=== PATIENT | female | born 1945 | race Caucasian/White ===

== ENCOUNTER → 2023-10-28 09:48 | Outpatient (REF) | payer OTHER, SELFPAY | LOC: HWWDC 09:48 | PROVIDERS: ATTENDING PHYSICIAN Internal Medicine | DX: Z12.31 Encounter for screening mammogram for malignant neoplasm of breast (principal) | CPT/HCPCS: 77063; 77067 ==

== ENCOUNTER 2024-11-07 05:35 | Observation (INO) | payer OTHER, SELFPAY ==
[2024-11-07] VITALS (9 sets, daily range): BP systolic 138–184; BP diastolic 84–105; PULSE 79; O2SAT 95; BMI 29.9
[2024-11-07 01:40] LABS: Hematocrit 42.8 % (37.0-47.0); Hemoglobin 14.4 g/dL (12.0-16.0); Mean Corp Hgb Conc. 33.6 g/dL (33.0-37.0); Mean Corpuscular Volume 92.4 fL (81.0-99.0); Nucleated Red Blood Cells % 0 %; Platelet Count 266 10^3/uL (130-400); Red Cell Dist. Width 12.7 % (11.5-14.5)
[2024-11-07 01:57] LABS: ALT (SGPT) 31 U/L (0-35); AST (SGOT) 41 U/L (14-36); Albumin 4.4 g/dl (3.5-5.0); Alkaline Phosphatase 85 U/L (38-126); Blood Urea Nitrogen 18 mg/dl (7-17); Calcium 9.6 mg/dl (8.4-10.2); Carbon Dioxide 25 mmol/L (22-30); Chloride 107 mmol/L (98-107); Estimated Creatinine Clearance 72 ml/min; Glucose 139 mg/dl (70-99); Potassium 4.2 mmol/L (3.5-5.1); Sodium 139 mmol/L (135-145); Total Protein 7.1 g/dl (6.3-8.2); eGFR > 60.00
--- NOTE | 2024-11-07 02:49 | ED.GENMED ---
History of Present Illness
General
Chief Complaint: Numbness
Source: patient and ambulance crew
Exam Limitations: none
Time Seen by Provider: 11/07/24 02:32
Nursing documentation reviewed up to this point in time: agreed with except (Patient reports right sided paresthesias from previous CVA 5 years ago resolved.)
History of Present Illness
History of Present Illness:
This is a 79-year-old woman with history of CAD, hypertension, hyperlipidemia, [id number] diabetes, ASCVD with history of CVA 5 years ago as well as history of vascular dementia.
She has been residing in independent living apartment at [facility] for the past 2 years. At baseline ambulates with a rollator when out of her apartment. Does not require ambulatory assistance while in her apartment.
She went to bed feeling well and at her baseline around 8:30 PM. She awoke sometime around midnight to get up and go to the bathroom and it was at this time where she noticed some numbness of her right hand, right forearm as well as numbness of her
right foot and right lower leg. She had no difficulty ambulating, no weakness, no dizziness nor lightheadedness.
She is concerned that right sided numbness is very similar to previous symptoms she suffered with a stroke 5 years ago.
She states she awoke lying on her back. She does not recall sleeping on her right side. But she does note that right arm and right leg numbness feels like her hand and foot 'are asleep.'
She denies chest pain nor cough no shortness of breath.
Numbness of primarily her hand and her foot persist. She denies pain. No neck or back pain. No recent falls.
If applicable-neuro sx onset
Onset of symptoms known: No
Time pt last seen normal is known: Yes
Date last time pt seen normal: 11/06/24
Time last time pt seen normal: 20:30
Past History
Past History
ED Past Medical History: CAD, Cancer (Melanoma), CVA, HTN, Hypercholesterolemia, NIDDM and Other (Vascular dementia)
ED Past Surgical History: Cardiac (Pacemaker), Gynecological (Hysterectomy) and Other (Melanoma excision x 2)
Social History
Tobacco: Non-smoker
Alcohol: None
Drug: None
Personal:
Living: assisted living (Resides at [facility], independent living)
Family History
Family History: Other (Noncontributory)
Phy Exam
Physical Exam
Physical Exam:
GENERAL: 79-year-old woman appears her stated age, bright and alert, pleasant, appears in no acute distress. Awake alert and oriented x 3. Easily communicative.
EYE: pupils equal and reactive. Extraocular muscles intact. No visual field deficit. Anicteric
NECK: Supple, nontender, no meningismus, no significant adenopathy.
ENT: posterior pharynx is clear, oral mucosa is moist. No rhinorrhea. No facial droop.
CARDIAC: Regular rate and rhythm. no murmur.
LUNGS: Clear breath sounds bilaterally, no acute respiratory distress, no wheezes/rales/rhonchi
ABDOMEN: Soft, nondistended, without focal tenderness, normoactive BS.
NEUROLOGICAL: Alert and oriented x3, cranial nerves II through XII grossly intact. Motor strength is 5/5 bilaterally. Gross sensation is intact. Questionable reliability of sharp versus dull of all 4 extremities. Negative drift. Very minimal
dysmetria of digits of right hand. There is no aphasia nor dysarthria.
SKIN: Warm and dry, normal color, skin intact. No rash.
MUSCULOSKELETAL: No C/C/E. peripheral pulses are full and equal b/l. No palpable tenderness.
PSYCH: Normal and appropriate interaction.
Scores
NIH Stroke Score
Level of Consciousness: 0 - Alert
LOC Questions: 0-Answers both correctly
LOC Commands: 0-Performs both correctly
Best Horizontal Gaze: 0-Normal
Visual Crawford: 0=Normal, no visual loss
Facial Palsy: 0=Normal, symmetrical
Motor - Right Arm: 0=No drift 10 seconds
Motor - Left Arm: 0=No drift 10 seconds
Motor - Right Le-No drift 5 seconds
Motor - Left Le-No drift 5 seconds
Limb Ataxia: 1-Present in one limb
Sensation: 0-Normal
Best Language: 0-No aphasia
Dysarthria: 0-Normal
Extinction and Inattention: 0-No abnormality
NIH Total Score:: 1
Course
Orders/Labs/Results
Orders:
Orders
11/07/24 01:22
CMP [Comprehensive Metabolic Panel] Urgent
Complete Blood Count/With Diff Urgent
11/07/24 02:36
Electrocardiogram (*1) Urgent
Reason for Study: Fatigue / Weakness
CT Head W/o Iv Contrast Urgent
Comment:
Reason For Exam: paresthesia right side
EKG- Treatment ONCE
11/07/24 02:40
Troponin I Urgent
Abnormal Lab Results
11/07/24
01:22
MCH 31.1 H pg
(27.0-31.0)
Abs Immat Gran (auto) 0.1 H 10^3/uL
(0-0.05)
Absolute Monos (auto) 1.0 H 10^3/uL
(0.1-0.6)
Immature Gran % 0.6 H %
(0-0.5)
Monocytes % 9.9 H %
(1.7-9.3)
BUN 18 H mg/dl
(7-17)
Glucose 139 H mg/dl
(70-99)
AST 41 H U/L
(14-36)
11/07/24 01:22
11/07/24 01:22
Vital Signs
Initial and Last Documented VS:
Initial Vital Signs
Temp Pulse Resp BP Pulse Ox
98.3 F 78 21 184/100 94
11/07/24 01:06 11/07/24 01:06 11/07/24 01:06 11/07/24 01:06 11/07/24 01:06
Last Documented Vital Signs
Temp Pulse Resp BP Pulse Ox
98.3 F 77 18 184/100 93
11/07/24 01:06 11/07/24 01:15 11/07/24 01:15 11/07/24 01:06 11/07/24 03:01
MDM/Problems Addressed
Differential Diagnosis Includes:
The Differential Diagnosis includes, in no particular order and is not limited to:
1. Transient Ischemic Attack
2. Cerebrovascular Accident
3. Peripheral Neuropathy
4. Multiple Sclerosis
5. Brachial Plexus Injury
6. Carpal Tunnel Syndrome
7. Cervical Radiculopathy
8. Hypoglycemia
9. Cobalamin Deficiency
10. Anxiety or Panic Attack
MDM/Problems Addressed:
Right sided paresthesia
At this point, unclear as to onset of symptoms as patient awoke with the symptoms. Last reported normal upon going to bed at 8:30 PM last night. And initial NIH stroke scale of 1. Therefore patient not a candidate for TNK.
Will check CT of the head.
Patient has multiple risk factors for CAD and with complaints of right arm paresthesia must consider CAD thus we will check EKG as well as troponin.
Chronic conditions affecting care: DM, HTN, CAD, Neurological disorder (Prior history of CVA) and Cancer (History of melanoma excision x 2)
*Radiology
Radiology exam reviewed: radiology read reviewed
*Pulse Oximetry
SaO2: 93
Oxygen Mode of Delivery: Room air
Patient hypoxic: no
*EKG
Interpreted by ED Provider?: Yes
Interpretation: normal
Comparison EKG: no comparison EKG present
Rate: normal
Rhythm: sinus and PVC's (1 unifocal PVC; 1 atrial paced complex)
Dunlap: normal axis
Interval: normal interval
QRS Pattern: normal QRS
Ischemia: no ischemia
*Company Doctor Interpretation
Rate: normal
Interpretation: normal
Rhythm: sinus
*Critical Care Note
Total Time (30-74mins, 75-104mins- exclusive of procedures): Not Applicable
Update Note
Update Note:
05:14
CT of the head shows no acute findings. There is note of left SEARCH PLANNER territory encephalomalacia as well as moderate periventricular hypodensities consistent with small vessel ischemic disease.
Patient continues with right arm and right lower extremity paresthesia, very minimal dysmetria of right hand digits which again she notes is new, persistent.
She continues to have no focal weakness.
EKG shows normal sinus rhythm with 1 unifocal PVC. No acute ST-T wave abnormalities.
Troponin is pending but she continues to deny chest pain.
Due to concern for acute stroke, will admit to hospitalist service for further evaluation.
ED Attending Note
-
Portions of this chart may have been created with voice recognition software.� Occasional wrong word or��sound alike� substitutions may have occurred due to the inherent limitations of voice recognition software.
Discharge Plan
Departure
Patient Disposition: Admit
Date of Disposition: 11/07/24
Time of Disposition: 05:14
Admit to: Telemetry
Admit to doctor: Randall
Presentation/result/management discussed w/ accepting MD/DO: Hospitalist
Condition: Fair
Discharge Problem:
Paresthesia of right arm and leg
Prescriptions:
No Action
donepezil 5 mg Tablet
5 mg PO HS
clopidogrel 75 mg Tablet
75 mg PO DAILY
losartan 100 mg Tablet
100 mg PO DAILY
escitalopram oxalate 10 mg Tablet
10 mg PO DAILY
pitavastatin calcium [Livalo] 4 mg Tablet
4 mg PO DAILY
Repatha Syringe 140 mg/mL Syringe
140 mg SC Q2W
metformin 750 mg Tablet
750 mg PO BID
Referrals:
Khusid,Chelsea, DO [Family Provider, Internal Medicine]
Interventions
Interventions:
*Risk Screen - Suicide Last Done: 11/07/24 01:06
*General Assessment Last Done: 11/07/24 01:06
*Neglect/Abuse Screening Last Done: 11/07/24 01:06
*ED- Fall Risk Assessment Last Done: 11/07/24 01:06
*ED COVID-19 Vaccine History Last Done: 11/07/24 01:06
ED- Neurological Assessment Last Done: 11/07/24 01:06
Discharge Date and Time
Print Language: VIETNAMESE
[2024-11-07 03:38] LABS: Troponin I < 0.012 ng/ml
--- NOTE | 2024-11-07 05:29 | HPS.HSE ---
Family Physician
-
Family Physician: Chelsea Royal
Chief Complaint
-
R sided neuralgia
History of Present Illness
Patient is a 79y F with PMH significant for hypertension, DM-II and prior CVA who presents to ED complaining of burning pain in the RUE and RLE. Patient states that she had a prior CVA about 5 years ago affecting her R side. She has some
residual weakness / ataxia - mostly involving the R hand. Patient presents today complaining of burning pain in the RUE from the shoulder to the fingertips and in the RLE from the knee to the toes. It is somewhat difficult to determine when these
symptoms began.
Patient initially informed ED staff that she woke in the middle of the night and noted this pain. She called 911 and was brought to the ED for evaluation.
Patient tells me that the pain started around 10 AM on Wednesday - shortly after breakfast. The pain then persisted for most of the day before the patient called 911.
At later times, patient states that the pain has been there for 'a week or two' and also that 'I live with this'.
She denies any new weakness in the arm or leg.
No headache. No vision changes. No fevers / chills, chest pain, cough, etc.
Patient denies any recent medication changes.
Medical History
Past Medical History
Past Medical History: Reports Other
Additional Past Medical History:
ASCVD
CVA 2020
Hypertension
DM-II
Peripheral Neuropathy
Vascular Dementia
Melanoma
Past Surgical History: Reports Other
Additional Past Surgical History:
Melanoma Excisions
PPM Placement
Hysterectomy
Social History
Tobacco: Non-smoker
Alcohol: None
Drug: None
Living: Assisted Living ([facility])
Family History
Family History: Not pertinent
Allergies / Home Medications
Allergies reflects when Allergies were last updated in [facility].
Home Medications with original date entered in [facility]
Allergy/Medication List:
Allergies
Allergy/AdvReac Type Severity Reaction Status Date / Time
latex Allergy Unknown Rash Verified 11/07/24 01:32
Home Medications
clopidogrel 75 mg tablet 75 mg PO DAILY 11/07/24
donepezil 5 mg tablet 5 mg PO HS 11/07/24
escitalopram oxalate 10 mg tablet 10 mg PO DAILY 11/07/24
evolocumab 140 mg/mL subcutaneous syringe (Repatha Syringe) 140 mg SC Q2W 11/07/24
losartan 100 mg tablet 100 mg PO DAILY 11/07/24
metformin 750 mg tablet 750 mg PO BID 11/07/24
pitavastatin calcium 4 mg tablet (Livalo) 4 mg PO DAILY 11/07/24
Review of Systems
-
History Source: Patient
A 12 point ROS was completed and negative except as noted: Yes
Constitutional: Reports Fatigue; Denies Fever or Chills
Respiratory: Denies Cough or Trouble Breathing
Cardiac: Denies Chest Pain or Palpitations
Abdomen/GI: Denies Abdominal Pain, Nausea, Vomiting or Diarrhea
: Denies Dysuria, Frequency or Flank Pain
Musculoskeletal: Denies Joint Pain or Edema
Neurological: Reports Weakness, Numbness and Other (burning pain); Denies Dizzy or Headache
Psych: Denies Depression or Anxiety
Physical Exam
Vital Signs
Vital Signs
Temp Pulse Resp BP Pulse Ox
98.3 F 77 18 184/100 93
11/07/24 01:06 11/07/24 01:15 11/07/24 01:15 11/07/24 01:06 11/07/24 03:01
Physical Exam
General: Other (79y F in no acute distress.)
HEENT: Moist mucous membranes and PERRLA
Respiratory: Clear; No Wheezes, Rales or Rhonchi
Cardiac: S1/S2 and Regular Rhythm; No Murmur
GI: Soft, Non Tender, Non Distended and Normal Bowel Sounds
Musculoskeletal: No Clubbing, No Cyanosis and No Edema
Neuro: Awake, Alert and Other (RUE weakness, decreased manual dexterity - reportedly chronic. No appreciable sensory deficits.)
Laboratory Results
-
11/07/24 01:22
11/07/24 01:22
Laboratory Results
Total Bilirubin 0.5 mg/dl (0.2-1.3) 11/07/24 01:22
AST 41 U/L (14-36) H 11/07/24:22
ALT 31 U/L (0-35) 11/07/24:
Alkaline Phosphatase 85 U/L (38-126) 11/07/24 01:22
Troponin I < 0.012 ng/ml 11/07/24 02:40
Impression/Plan
-
A/P: Patient is a 79y F with PMH significant for hypertension, DM and prior CVA who presents to ED complaining of right sided neuralgia.
Right-Sided Neuralgia
- Observe overnight for further evaluation and treatment.
- It is unclear when symptoms began - or if they are new at all really.
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 No new / acute findings.
- Follow serial neuro exams for any changes.
- Continue Plavix and add ASA for now.
- MRI in AM to assess for any acute insult.
- ? new CVA, chronic sequelae of prior CVA or recrudescence of old stroke.
- Trial of gabapentin for neuropathic pain.
- PT / OT evaluations.
- Check lipids, follow BP, etc.
ASCVD
- DAPT for now as noted above (chronically on Plavix).
- Continue statin. Note that patient also on Repatha as an outpatient.
Benign Hypertension
- BP initially elevated in the ED and is improving without specific intervention.
- Continue usual BP med regimen for now and adjust as needed.
DM-II
- Stable. Hold metformin acutely.
- Follow glucose and cover with SSI as needed.
- Update A1C.
Senile Dementia
- History somewhat difficult given underlying dementia and varying time frames presented for symptom onset.
- Continue donepezil.
- Monitor for any agitation / delirium during acute stay.
DVT Prophylaxis: SCDs
Code Status: Full
[2024-11-07 08:04] LABS: Glucose - Point of Care 134 mg/dl (70-99)
--- NOTE | 2024-11-07 08:41 | W.PN.HOSP.TC ---
Today's Communication/Plan
-
MRI today
Continue blood pressure medications
Continue monitoring neurochecks
Assessment / Plan
Assessment / Plan
Assessment:
79-year-old female with past medical history of hypertension, DM2, prior CVA presented to the outside ED due to burning pain in the right upper extremity and right lower extremity. She has had CVA around 5 years ago which affected her right side
and has had residual weakness and ataxia, mostly involving the right hand. She says that her symptoms began last night when she started to notice some numbness and pain after which she called the ambulance to go to the hospital because she thought
she might be having a stroke. 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 Patient was continued on her Plavix and added aspirin. Due for MRI this morning
to assess for any acute insults. She was started on gabapentin for her neuropathic pain.
Plan:
#Right-Sided Neuralgia/neuropathic pain
- Patient admitted for observation
- Symptoms may have been chronic however might have worsened for acute reason
- CT head shows no acute findings, still awaiting final read
- Continue neurochecks every 4 hours
- Continue Plavix and add ASA for now.
- Brain MRI today, check for any acute findings
- Trial of gabapentin for neuropathic pain.
- Will await PT OT evaluations
- Will consult neuro for any further recommendations, input appreciated
#ASCVD
- Has been on Plavix, continue and added aspirin
- Continue statin. Patient also on Repatha as an outpatient
- Will recheck lipids in the morning
#Benign Hypertension
- Blood pressure still elevated, has not received her medication yet
- Continue to monitor blood pressure, will check blood pressure again when she has received her losartan for the day
# Type 2 diabetes, [id number]
- Holding metformin in the hospital setting
- Continuing insulin sliding scale as needed
- HbA1c in the morning
#Senile Dementia
- Difficult to get history as patient has continued to change her symptoms
- Continue home dose of donepezil.
- Continue to monitor for any worsening mental status
DVT Prophylaxis: SCDs
Full code
Anticipated Discharge: Within 24 hours
Subjective/Interval History
-
Date of Service: November 07, 2024
Patient seen this morning, he was not complaining of any pain. Said that she has some right sided upper and lower extremity numbness however has no motor weakness. Does not report any burning sensation at this time. Overall patient is feeling
well, reports no headaches, shortness of breath, chest pain.
Objective Data
-
Labs:
Laboratory Results
11/07/24
01:22
WBC 10.1
Hgb 14.4
Hct 42.8
Plt Count 266
Sodium 139
Potassium 4.2
Chloride 107
Carbon Dioxide 25
BUN 18 H
Creatinine 0.6
Glucose 139 H
Calcium 9.6
Total Bilirubin 0.5
AST 41 H
ALT 31
Alkaline Phosphatase 85
Vital Signs:
Vital Signs
Temp Pulse Resp BP Pulse Ox
98.2 F 77 16 163/90 93
11/07/24 08:26 11/07/24 06:00 11/07/24 06:00 11/07/24 04:00 11/07/24 03:15
Review of Systems
-
History Source: Patient
Constitutional: Reports No Symptoms
EENT: Reports No Symptoms Reported
Respiratory: Reports No Symptoms
Cardiac: Reports No Symptoms
Abdomen/GI: Reports No Symptoms
Genitourinary: Reports No Symptoms
Musculoskeletal: Reports Other (Right hand, right foot mild numbness); Denies Myalgias
Skin: Reports No Symptoms
Neuro: Denies Headache, Weakness, Tremors or Lightheadedness
Physical Exam
-
General: Well Developed, Well Nourished, No Apparent Distress, Comfortable and Conversant
HEENT: Normocephalic and Atraumatic
Respiratory: Clear to Auscultation and Non Labored Respirations
Cardiac: Regular Rhythm and S1/S2; Negative Murmur
GI: Soft, Nontender and Nondistended
Genito-urinary: No Costovertebral Tender
Musculoskeletal: No Clubbing, No Cyanosis and No Edema
Skin: Warm and Dry
Neuro: Awake, Alert, Oriented, AO x 3, No Motor Deficits and Other (Mild loss of pinprick sensation in right 2nd and 3rd toes, without any pain. Mild loss of pinprick sensation in right hand, without any pain); Negative Slurred Speech or Facial
Droop
Psych: Calm
Data Reviewed
-
CT Scan: Report Reviewed by me, Discussed with Physician, Discussed with Nurse and Discussed with Patient
Labs: Labs Reviewed by me, Discussed with Physician, Discussed with Nurse and Discussed with Patient
[2024-11-07] MEDS: NEURONTIN 100 MG PO ×3 (09:14→21:03)
[2024-11-07] MEDS: COZAAR 100 MG PO (09:14)
[2024-11-07] MEDS: PLAVIX 75 MG PO (09:14)
[2024-11-07] MEDS: LEXAPRO 10 MG PO (09:15)
[2024-11-07] MEDS: LOW STRENGTH ASPIRIN 81 MG PO (09:15)
--- NOTE | 2024-11-07 10:09 | CM ---
CM reviewed chart and met with pt bedside in ED. Pt lives [place] in [place] apartment at [facility].
Independent in ADLs, personal care and ambulation at baseline. Uses Rolling walker, no other DME.
MCCALL reviewed and signed, pt declined copy of form.
No hx VN or SNF.
PCP: Dr Chelsea Royal
Pharmacy: [facility]
Anticipate [facility], CM will continue to follow for any discharge planning needs.
[2024-11-07] MEDS: LIPITOR 20 MG PO (10:53)
--- NOTE | 2024-11-07 10:57 | CON.NEURO ---
Addendum entered and electronically signed by Holden Lai MD 11/07/24 17:06:
Studies reviewed.
I have personally examined the patient. I reviewed and agree with the COAL EQUIPMENT OPERATOR's Note.
My addenda:
Awake, alert, interactive. No acute distress.
Speech intact.
Follows 2-step requests w/ mild difficulty. No tremor.
Extra-ocular movements grossly intact.
Facial movements full and symmetric. Hearing intact to normal conversational volume.
Normal UE movements bilaterally.
Neck: full ROM.
Chest: no dyspnea
Heart: no JVD
Ext: (-) Clubbing, (-) Cyanosis, (-) Edema
IMPRESSIONS/RECOMMENDATIONS:
Abrupt onset of right-hemibody sensation change and right hemianopia in a patient with prior stroke
DDX acute left parieto-occipital stroke or thalamic ischemic stroke
add ASA to current Clopidogrel
double Atorvastatin dosing due to LDL > 70
check MRI of brain
goal of normotension after 24 hours of onset of symptoms, until then permissive HTN
D/W patient / family / nursing
All questions answered.
Will continue to follow patient.
Original Note:
Documented by User: Genoveva Stahl NP 11/07/24 14:42
Neuro Assessment/Plan
Assessment
Patient is a 79 year-old right-handed female with PMH significant for hypertension, DM-II, dementia and prior CVA who presents to [facility] on 11/07/2024 complaining of burning pain in the RUE and RLE.
Head CT: No acute intracranial abnormality noted. Old infarcts. Moderate periventricular small vessel ischemic disease. Mild atrophy.
CTA head/neck: No evidence for hemodynamically significant stenosis of the carotid bulbs or proximal internal carotid arteries bilaterally. No significant narrowing of the anterior circulation intracranial. Moderate narrowing of the V4 portion of
the right vertebral artery. Small caliber of the posterior cerebral arteries is mild luminal irregularity, in this patient with evidence for bilateral old occipital infarcts.
Labs: Cholesterol 230, LDL 116, Hgb A1C 7.1
Plan
Impression: unclear onset of RUE/RLE paresthesias as well as right hemianopsia, differential diagnosis includes acute ischemic stroke vs recrudesce of old stroke
-check MRI brain without contrast to evaluate for stroke
-BP goal is normotension.
-continue aspirin 81 mg in addition to clopidogrel 75 mg daily, check P2Y12 to ensure she is a responder
-goal is normoglycemia.
-goal LDL <70, current LDL 116 increase atorvastatin from 20 mg to 40 mg nightly
-PT/OT/ST evaluations
-continue neurochecks and NIHSS per unit guidelines
-stroke education material to be provided
All questions encouraged and answered, plan of care discussed with Dr. Lai and patient
Consultation
Order
Date of Consultation: 11/07/24
Requesting Provider: hospitalist
Reason for Consult: paresthesia of RUE/RLE
Subjective/Objective
Subjective Data
Date of Service: November 07, 2024
Patient is a 79 year-old right-handed female with PMH significant for hypertension, DM-II, dementia and prior CVA who presents to [facility] from [facility] on 11/07/2024 complaining of burning pain in the RUE and RLE. Patient states that she had a
prior CVA about 5 years ago affecting her R side. She has some residual weakness / ataxia - mostly involving the R hand. Patient presents today complaining of burning pain in the RUE from the shoulder to the fingertips and in the RLE from the knee
to the toes. It is somewhat difficult to determine when these symptoms began. Patient initially informed ED staff that she went to bed in her normal state of health around 8:30 pm and awoke in the middle of the night and noted this pain. She called
911 and was brought to the ED for evaluation and did not call her family because she did not want them to worry. Patient told the hospitalist that the pain started around 10 AM on Wednesday shortly after breakfast. The pain then persisted for most of
the day before the patient called 911. At later times, patient states that the pain has been there for 'a week or two' and also that 'I live with this'. She denies any new weakness in the arm or leg. Denies headache, vision changes, chewing or
swallowing issues. No fevers, chills, chest pain, SOB. Denies issues with bladder/bowel. Denies recent falls or LOC. Patient denies any recent medication changes. In the ED she underwent CT head which showed prior CVA/encephalomalacia in the left
POWER WASHER area however no acute or new findings were seen. Her initial BP was 184/100. Patient was continued on her Plavix and aspirin was added. She was started on gabapentin for her neuropathic pain. Not a TNK candidate due to unclear onset of symptoms.
Objective Data
Vital Signs
Temp Pulse Resp BP Pulse Ox
98.2 F 88 17 168/84 96
11/07/24 08:26 11/07/24 09:00 11/07/24 09:00 11/07/24 09:14 11/07/24 08:45
Lab Results
11/07/24 01:22
11/07/24 01:22
Sodium 139 mmol/L (135-145) 11/07/24 01:22
Potassium 4.2 mmol/L (3.5-5.1) 11/07/24 01:22
BUN 18 mg/dl (7-17) H 11/07/24 01:22
Glucose 139 mg/dl (70-99) H 11/07/24 01:22
Calcium 9.6 mg/dl (8.4-10.2) 11/07/24 01:22
Patient Allergies
latex Allergy (Unknown, Verified 11/07/24 01:32)
Rash
CVA Assessment
Onset of Stroke Symptoms
Onset of symptoms known: Yes
Date of onset of symptoms: 11/06/24
Time of onset of symptoms: 10:00
Time pt last seen normal is known: Yes
Date last time pt seen normal: 11/06/24
Time last time pt seen normal: 10:00
NIH Stroke Score
Level of Consciousness: 0 - Alert
LOC Questions: 0-Answers both correctly
LOC Commands: 0-Performs both correctly
Best Horizontal Gaze: 0-Normal
Visual Crawford: 0=Normal, no visual loss
Facial Palsy: 0=Normal, symmetrical
Motor - Right Arm: 0=No drift 10 seconds
Motor - Left Arm: 0=No drift 10 seconds
Motor - Right Le-No drift 5 seconds
Motor - Left Le-No drift 5 seconds
Limb Ataxia: 1-Present in one limb
Sensation: 0-Normal
Best Language: 0-No aphasia
Dysarthria: 0-Normal
Extinction and Inattention: 0-No abnormality
NIH Total Score:: 1
Tenecteplase Contraindications
Inclusion and Exclusion criteria reviewed: Yes
Reasons for NON-Tx with Thrombolytics ABSOLUTE Exclusions: Time-out of window
IAT Contraindications: >6 hrs from onset/last seen normal and NIHSS < 6
Physical Exam
-
General: No Apparent Distress, Comfortable and Appears Stated Age
HEENT: Normocephalic, Atraumatic and Anicteric
Neck: Full Range of Motion
Respiratory: No Dyspnea
Cardiac: No JVD
GI: Non-distended
Skin: Unremarkable
Extremities: No Clubbing, No Cyanosis and No Edema
Psych: Confused and Apparent Dementia
Extended Neurological Exam
Mood & Affect: Mood Unremarkable
Attention Span & Concentration: Awake, Alert, Interactive and No Difficulty with 2 Step Request
Speech: Quality Unremarkable, Quantity Unremarkable and Rate of Production Unremarkable
Cranial Nerve II: Left Eye: Other (right hemianopsia)
Cranial Nerve II: Right Eye: Other (right hemianopsia)
Cranial Nerves III, IV, : Extraocular Movement: Extraocular Movement Full in all Directions
Cranial Nerve VII: Facial Symmetry: Normal Facial Symmetry
Cranial Nerve VIII: Hearing: Unremarkable Hearing to Normal Conversational Volume
Cranial Nerves IX, X: Palate Movement: Palate Elevation Symmetric
Cranial Nerve XI: Shoulder Shrug: Unremarkable
Muscle Strength, Overall: Full Throughout
Pronator Drift: No Drift in Upper Extremities and No Drift in Lower Extremities
Coordination: Reaches for Objects without Difficulty and Other (RUE ataxia )
Data Reviewed
-
CT Head: Report Reviewed and Image Reviewed
Labs: Report Reviewed
Reviewed with: Physician, Nurse and Patient
Old Records: Summarized
Medications
-
Active Medications
Generic Name Dose Route Start Last Admin
Trade Name Freq PRN Reason Stop Dose Admin
Acetaminophen 650 mg 11/07/24 06:59
Acetaminophen 325 Mg Tablet PO 12/05/24 06:58
Q4HPRN PRN
Mild Pain / Temp > 101
Aspirin 81 mg 11/07/24 08:00 11/07/24 09:15
Aspirin 81 Mg Chewable Tablet PO 12/05/24 07:59 81 mg
DAILY MERON Administration
Atorvastatin Calcium 20 mg 11/07/24 10:00 11/07/24 10:53
Atorvastatin (Lipitor) 20 Mg Tablet PO 12/05/24 09:59 20 mg
DAILY MERON Administration
Clopidogrel Bisulfate 75 mg 11/07/24 08:00 11/07/24 09:14
Clopidogrel 75 Mg Tablet PO 12/05/24 07:59 75 mg
DAILY MERON Administration
Dextrose 12.5 grams 11/07/24 06:59
Dextrose 50% (0.5 Grams/Ml) 50 Ml Syringe IV 12/05/24 06:58
[id number] PRN
hypoglycemia
Protocol
Donepezil HCl 5 mg 11/07/24 22:00
Donepezil 5 Mg Tablet PO 12/05/24 21:59
HS MERON
Escitalopram Oxalate 10 mg 11/07/24 08:00 11/07/24 09:15
Escitalopram 10 Mg Tablet PO 12/05/24 07:59 10 mg
DAILY MERON Administration
Gabapentin 100 mg 11/07/24 08:00 11/07/24 09:14
Gabapentin 100 Mg Capsule PO 12/05/24 07:59 100 mg
TID MERON Administration
Glucagon 1 mg 11/07/24 06:59
Glucagon 1 Mg Vial IM 12/05/24 06:58
PRN PRN
hypoglycemia
Protocol
Insulin Aspart 0 units 11/07/24 07:30 11/07/24 08:04
Insulin Aspart Low Resistance 300 Units/3 Ml Pen.Injctr SC 12/05/24 07:29 Not Given
AC MERON
Protocol
Losartan Potassium 100 mg 11/07/24 08:00 11/07/24 09:14
Losartan 100 Mg Tablet PO 12/05/24 07:59 100 mg
DAILY MERON Administration
Sodium Chloride 0 flush 11/07/24 07:00
Sodium Chloride 0.9% (Flush) Syringe IV 12/05/24 06:59
PER PROTOCOL MERON
Home Medications
�Medication �Instructions �Recorded
clopidogrel 75 mg tablet 75 mg PO DAILY 11/07/24
donepezil 5 mg tablet 5 mg PO HS 11/07/24
escitalopram oxalate 10 mg tablet 10 mg PO DAILY 11/07/24
evolocumab 140 mg/mL subcutaneous 140 mg SC Q2W 11/07/24
syringe (Repatha Syringe)
losartan 100 mg tablet 100 mg PO DAILY 11/07/24
metformin 750 mg tablet 750 mg PO BID 11/07/24
pitavastatin calcium 4 mg tablet 4 mg PO DAILY 11/07/24
(Livalo)
Past History
Past History
ED Past Medical History: CAD, Cancer (Melanoma), CVA, HTN, Hypercholesterolemia, NIDDM and Other (Vascular dementia)
ED Past Surgical History: Cardiac (Pacemaker), Gynecological (Hysterectomy) and Other (Melanoma excision x 2)
Family/Social History
Tobacco: Non-smoker
Alcohol: None
Drug: None
Personal:
Living: assisted living (Resides at [facility], independent living)
Family History: Other (Noncontributory)

Documented by User: Holden Lai MD 11/07/24 17:03
CVA Assessment
NIH Stroke Score
NIH Total Score:: 1
[2024-11-07 11:54] LABS: HDL Cholesterol 61 mg/dl; LDL Cholesterol, Calculated 116 mg/dl; Very Low Density Lipoprotein 53 mg/dl (0-30)
[2024-11-07 12:05] LABS: Glycohemoglobin (HgbA1c) 7.1 % (4.0-5.6)
[2024-11-07 12:53] LABS: Glucose - Point of Care 117 mg/dl (70-99)
[2024-11-07 16:10] LABS: Glucose - Point of Care 128 mg/dl (70-99)
[2024-11-07] MEDS: ARICEPT 5 MG PO (21:03)
[2024-11-07 21:40] LABS: Glucose - Point of Care 182 mg/dl (70-99)
[2024-11-08 03:52] VITALS: BP 138/91
[2024-11-08 06:59] LABS: Glucose - Point of Care 134 mg/dl (70-99)
[2024-11-08 07:00] VITALS: BP 160/88
[2024-11-08 07:09] LABS: Hematocrit 41.2 % (37.0-47.0); Hemoglobin 13.9 g/dL (12.0-16.0); Mean Corp Hgb Conc. 33.7 g/dL (33.0-37.0); Mean Corpuscular Volume 92.8 fL (81.0-99.0); Platelet Count 250 10^3/uL (130-400); Red Cell Dist. Width 12.8 % (11.5-14.5)
[2024-11-08 07:17] LABS: Blood Urea Nitrogen 17 mg/dl (7-17); Calcium 9.2 mg/dl (8.4-10.2); Carbon Dioxide 26 mmol/L (22-30); Chloride 106 mmol/L (98-107); Estimated Creatinine Clearance 61 ml/min; Glucose 141 mg/dl (70-99); Potassium 4.4 mmol/L (3.5-5.1); Sodium 139 mmol/L (135-145); eGFR > 60.00
--- NOTE | 2024-11-08 07:56 | W.PN.HOSP.TC ---
Addendum entered and electronically signed by Vishal Gould MD 11/08/24 17:45:
Started aspirin increase statin continue Plavix
Unable to obtain MRI as we need to have pacemaker interrogated to assess for compatibility. She has not followed up with outpatient squaring shear operator for more than a year and they would like to see her in the office. Spoke with neurology recommend
outpatient MRI once cardiac clearance has been obtained. Resident physician called PCP and updated him about this. Discharged home.
Original Note:
Today's Communication/Plan
-
MRI today
Further management depending on her MRI results
Continue neurochecks
Assessment / Plan
Assessment / Plan
Assessment:
79-year-old female with past medical history of hypertension, DM2, prior CVA presented to the outside ED due to burning pain in the right upper extremity and right lower extremity. She has had CVA around 5 years ago which affected her right side
and has had residual weakness and ataxia, mostly involving the right hand. She says that her symptoms began last night when she started to notice some numbness and pain after which she called the ambulance to go to the hospital because she thought
she might be having a stroke. In the ED she underwent CT head which showed prior CVA/encephalomalacia in the left GEODETIC ENGINEER area however no acute or new findings were seen. Patient was continued on her Plavix and added aspirin. She was started on
gabapentin for her neuropathic pain. She underwent CTA head and neck yesterday which showed some moderate narrowing of the V4 portion of the right vertebral artery, but otherwise no significant findings. Due for MRI of the brain today.
Plan:
#Right-Sided Neuralgia/neuropathic pain
- Patient admitted for observation
- Symptoms may have been chronic however might have worsened for acute reason
- CT head shows no acute findings, still awaiting final read
- Continue neurochecks every 4 hours
- Continue Plavix and add ASA for now.
- Gabapentin has been helping with neuropathic pain, reports no pain this morning
- Will await PT OT evaluations
- Neuro consulted, input appreciated
- [facility] scores have been low (most recent one 2)
- Brain MRI today, check for any signs of acute stroke process
#ASCVD
- Has been on Plavix, continue and added aspirin
- Patient's LDL was increased, was at 116. Patient also on Repatha as an outpatient
- Statin dose was increased to 40 mg atorvastatin
#Benign Hypertension
- Blood pressure still elevated, has not received her medication yet
- Continue to monitor blood pressure, will check blood pressure again when she has received her losartan for the day
# Type 2 diabetes, [id number]
- Holding metformin in the hospital setting
- Continuing insulin sliding scale as needed
- HbA1c 7.1%
#Senile Dementia
- Continue home dose of donepezil.
- Continue to monitor for any worsening mental status
DVT Prophylaxis: SCDs
Full code
Anticipated Discharge: Within 24 hours
Subjective/Interval History
-
Date of Service: November 08, 2024
Patient seen this morning, resting comfortably in bed. Says that her symptoms seem to be a little bit improved from yesterday, but reports no significant change. Overall feeling little bit better and reports she has had no worsening pain of her
right extremities or any worsening sensory deprivation over the right side. The numbness seems to have been resolving too.
Objective Data
-
Labs:
Laboratory Results
11/08/24
06:01
WBC 9.1
Hgb 13.9
Hct 41.2
Plt Count 250
Sodium 139
Potassium 4.4
Chloride 106
Carbon Dioxide 26
BUN 17
Creatinine 0.7
Glucose 141 H
Calcium 9.2
Vital Signs:
Vital Signs
Temp Pulse Resp BP Pulse Ox
98.7 F 71 16 138/91 93
11/08/24 03:52 11/08/24 03:52 11/08/24 03:52 11/08/24 03:52 11/08/24 03:52
I&O
11/07/24 11/08/24 11/09/24
06:59 06:59 06:59
Intake Total 720 / 720
Balance 720 / 720
Review of Systems
-
History Source: Patient
Constitutional: Reports No Symptoms
EENT: Reports No Symptoms Reported
Respiratory: Reports No Symptoms
Cardiac: Reports No Symptoms
Abdomen/GI: Reports No Symptoms
Genitourinary: Reports No Symptoms
Musculoskeletal: Reports Other (Right hand, right foot mild numbness); Denies Edema or Myalgias
Skin: Reports No Symptoms
Neuro: Denies Headache, Weakness, Tremors or Lightheadedness
Endocrine: Reports No Symptoms
Hematologic / Lymphatic: Reports No Symptoms
Physical Exam
-
General: Well Developed, Well Nourished, No Apparent Distress, Comfortable and Conversant
HEENT: Normocephalic and Atraumatic
Respiratory: Clear to Auscultation and Non Labored Respirations
Cardiac: Regular Rhythm and S1/S2; Negative Murmur
GI: Soft, Nontender and Nondistended
Genito-urinary: No Costovertebral Tender
Musculoskeletal: No Clubbing, No Cyanosis and No Edema
Skin: Warm and Dry
Neuro: Awake, Alert, Oriented, AO x 3, No Motor Deficits and Other (Improved pinprick sensation in right 2nd and 3rd toes, without any pain. Improved pinprick sensation in right hand, without any pain); Negative Slurred Speech or Facial Droop
Psych: Calm
Data Reviewed
-
CT Scan: Report Reviewed by me, Discussed with Physician and Discussed with Patient
Labs: Labs Reviewed by me, Discussed with Physician and Discussed with Patient
[2024-11-08 08:22] VITALS: BMI 29.0
[2024-11-08] MEDS: LIPITOR 40 MG PO (08:32)
[2024-11-08] MEDS: COZAAR 100 MG PO (08:33)
[2024-11-08] MEDS: LEXAPRO 10 MG PO (08:33)
[2024-11-08] MEDS: NEURONTIN 100 MG PO (08:33)
[2024-11-08] MEDS: LOW STRENGTH ASPIRIN 81 MG PO (08:33)
[2024-11-08] MEDS: PLAVIX 75 MG PO (08:33)
--- NOTE | 2024-11-08 08:56 | W.PN.NEURO.1 ---
Today's Communication / Plan
-
unable to check MRI brain without contrast to evaluate for stroke
continue aspirin 81 mg in addition to clopidogrel 75 mg daily, check P2Y12 to ensure she is a responder
goal LDL <70, current LDL 116 increased atorvastatin from 20 mg to 40 mg nightly
Neuro Assessment/Plan
Assessment
Patient is a 79 year-old right-handed female with PMH significant for hypertension, DM-II, dementia and prior CVA who presents to [facility] on 11/07/2024 complaining of burning pain in the RUE and RLE.
Head CT: No acute intracranial abnormality noted. Old infarcts. Moderate periventricular small vessel ischemic disease. Mild atrophy.
CTA head/neck: No evidence for hemodynamically significant stenosis of the carotid bulbs or proximal internal carotid arteries bilaterally. No significant narrowing of the anterior circulation intracranial. Moderate narrowing of the V4 portion of
the right vertebral artery. Small caliber of the posterior cerebral arteries is mild luminal irregularity, in this patient with evidence for bilateral old occipital infarcts.
Labs: Cholesterol 230, LDL 116, Hgb A1C 7.1
Impression: unclear onset of RUE/RLE paresthesias as well as right hemianopsia, differential diagnosis includes acute ischemic stroke vs recrudesce of old stroke
Plan
unable to check MRI brain without contrast to evaluate for stroke
continue aspirin 81 mg in addition to clopidogrel 75 mg daily, check P2Y12 to ensure she is a responder
goal LDL <70, current LDL 116 increased atorvastatin from 20 mg to 40 mg nightly
Will follow as needed
Subjective/Objective
Subjective Data
Date of Service: November 08, 2024
Objective Data
Vital Signs
Temp Pulse Resp BP Pulse Ox
36.5 C 72 16 160/88 95
11/08/24 07:00 11/08/24 08:33 11/08/24 07:00 11/08/24 08:33 11/08/24 07:00
Lab Results
11/08/24 06:01
11/08/24 06:01
Sodium 139 mmol/L (135-145) 11/08/24 06:01
Potassium 4.4 mmol/L (3.5-5.1) 11/08/24 06:01
BUN 17 mg/dl (7-17) 11/08/24 06:01
Glucose 141 mg/dl (70-99) H 11/08/24 06:01
Calcium 9.2 mg/dl (8.4-10.2) 11/08/24 06:01
LDL Cholesterol, Calc 116 mg/dl 11/07/24 01:22
Patient Allergies
latex Allergy (Unknown, Verified 11/07/24 01:32)
Rash
Data Reviewed
-
Labs: Report Reviewed
P2Y12: Ordered
Reviewed with: Nurse Practioner
Old Records: Summarized
Past History
Past History
ED Past Medical History: CAD, Cancer (Melanoma), CVA, HTN, Hypercholesterolemia, NIDDM and Other (Vascular dementia)
ED Past Surgical History: Cardiac (Pacemaker), Gynecological (Hysterectomy) and Other (Melanoma excision x 2)
Social History
Tobacco: Non-smoker
Alcohol: None
Drug: None
Personal:
Living: assisted living (Resides at [facility], independent living)
Family History
Family History: Other (Noncontributory)
Medications
-
Medications:
Generic Name Dose Route Start Last Admin
Trade Name Freq PRN Reason Stop Dose Admin
Acetaminophen 650 mg 11/07/24 06:59
Acetaminophen 325 Mg Tablet PO 12/05/24 06:58
Q4HPRN PRN
Mild Pain / Temp > 101
Aspirin 81 mg 11/07/24 08:00 11/08/24 08:33
Aspirin 81 Mg Chewable Tablet PO 12/05/24 07:59 81 mg
DAILY MERON Administration
Atorvastatin Calcium 40 mg 11/08/24 08:00 11/08/24 08:32
Atorvastatin (Lipitor) 40 Mg Tablet PO 12/06/24 07:59 40 mg
DAILY MERON Administration
Clopidogrel Bisulfate 75 mg 11/07/24 08:00 11/08/24 08:33
Clopidogrel 75 Mg Tablet PO 12/05/24 07:59 75 mg
DAILY MERON Administration
Dextrose 12.5 grams 11/07/24 06:59
Dextrose 50% (0.5 Grams/Ml) 50 Ml Syringe IV 12/05/24 06:58
[id number] PRN
hypoglycemia
Protocol
Donepezil HCl 5 mg 11/07/24 22:00 11/07/24 21:03
Donepezil 5 Mg Tablet PO 12/05/24 21:59 5 mg
HS MERON Administration
Escitalopram Oxalate 10 mg 11/07/24 08:00 11/08/24 08:33
Escitalopram 10 Mg Tablet PO 12/05/24 07:59 10 mg
DAILY MERON Administration
Gabapentin 100 mg 11/07/24 08:00 11/08/24 08:33
Gabapentin 100 Mg Capsule PO 12/05/24 07:59 100 mg
TID MERON Administration
Glucagon 1 mg 11/07/24 06:59
Glucagon 1 Mg Vial IM 12/05/24 06:58
PRN PRN
hypoglycemia
Protocol
Insulin Aspart 0 units 11/07/24 07:30 11/08/24 08:32
Insulin Aspart Low Resistance 300 Units/3 Ml Pen.Injctr SC 12/05/24 07:29 Not Given
AC MERON
Protocol
Losartan Potassium 100 mg 11/07/24 08:00 11/08/24 08:33
Losartan 100 Mg Tablet PO 12/05/24 07:59 100 mg
DAILY MERON Administration
Sodium Chloride 0 flush 11/07/24 07:00
Sodium Chloride 0.9% (Flush) Syringe IV 12/05/24 06:59
PER PROTOCOL MERON
[2024-11-08 11:00] VITALS: BP 141/77
[2024-11-08 11:46] LABS: Glucose - Point of Care 131 mg/dl (70-99)
[2024-11-08 12:45] LABS: VerifyNow Aspirin 404 ARU
--- NOTE | 2024-11-08 13:12 | CM ---
MD indicated discharge today.
Spoke with patient she said she was ready for discharge today.
Offered VN she declined need
Her dgt Rochelle will drive her home.
[facility]NA Return to [facility] no needs
--- NOTE | 2024-11-08 13:22 | W.DCSUMMARY ---
Discharge Summary
Discharge Data
Date of Admission: 11/07/24
Date of Discharge: 11/08/24
-
Pending Results: No
Hospital Course
Discharging Physician : Dr. Vishal Gould, Dr. Zachary Vicente
Disposition : Home ([facility])
Primary care physician : Dr. Chelsea Royal
Principal Discharge diagnosis :
Right-Sided Neuralgia/neuropathic pain
Chronic Discharge diagnosis :
Benign Hypertension
Hx of ASCVD
Type 2 diabetes, [id number]
Senile Dementia
Hospital Course :
79-year-old female with past medical history of hypertension, DM2, prior CVA presented to the outside ED due to burning pain in the right upper extremity and right lower extremity. She has had CVA around 5 years ago which affected her right side
and has had residual weakness and ataxia, mostly involving the right hand. She says that her symptoms began the night before when she started to notice some numbness and pain after which she called the ambulance to go to the hospital because she
thought she might be having a stroke.
In the ED she underwent CT head which showed prior CVA/encephalomalacia in the left [employer] area however no acute or new findings were seen. Patient was continued on her Plavix and aspirin was added. She was started on gabapentin for her neuropathic
pain. She underwent CTA head and neck yesterday which showed some moderate narrowing of the V4 portion of the right vertebral artery, but otherwise no significant findings. Patient's symptoms continued to improve and no longer complained of right
sided neurpathic pain.
Patient was due to for an MRI Brain to check for any acute strokes but it was not possible due to her pacemaker. MRI team contacted patient's imaging scheduler at [facility] for clearance but were unable to get said clearance due to patient not having
been seen at the practice for more than one year. MRI Brain was cancelled and patient was discharged home with instructions to follow up with her Hospital Secretary to get MRI clearance and then follow up with PCP to get outpatient MRI scheduled. Patient
should continue both Plavix and Aspirin and also continue on the increased dose of Atorvastatin which was increased to 40mg. Patient should also continue with Gabapentin 100mg three times daily for her neuropathic pain.
Important imaging findings :
CT Head W/o Iv Contrast:
No acute intracranial abnormality noted.
Old infarcts.
Moderate periventricular small vessel ischemic disease.
Mild atrophy.
CT Head & Neck Angio W/wo IV:
No evidence for hemodynamically significant stenosis of the carotid bulbs or proximal internal carotid arteries bilaterally.
No significant narrowing of the anterior circulation intracranial.
Moderate narrowing of the V4 portion of the right vertebral artery.
Small caliber of the posterior cerebral arteries is mild luminal irregularity, in this patient with evidence for bilateral old occipital infarcts.
Procedure findings :
Discharge Plan
-
Patient Disposition: Home (Routine Discharge)
Discharge Diagnosis/Procedures: Right-Sided Neuralgia/neuropathic pain
Benign Hypertension
Hx of ASCVD
Type 2 diabetes, [id number]
Senile Dementia
Condition: Fair
Diet: Low Cholesterol
Activity: No restrictions
Driving Restrictions: As prior to admission
Bathing Restrictions: None
Other Services: VN
Referrals:
Chelsea Royal DO [Family Provider, Internal Medicine] - in less than 1 week
Referral Note: Please follow up with your PCP within 1 week. Please speak to them regarding scheduling your brain MRI following clearance of your pacemaker from Cardiology
Additional Discharge Medication Instructions: Your atorvastatin was increased to 40 mg
Please continue taking Aspirin 81 mg daily
Please take Gabapentin 100mg three times a day for your neuropathic pain
Please follow up with your Hospital Secretary from [facility] regarding clearing your pacemaker for MRI
Please follow up with your PCP regarding ordering your MRI Brain without contrast
Prescriptions:
New
atorvastatin 40 mg Tablet
40 mg PO DAILY 30 Days Qty: 30 0RF
aspirin 81 mg Tablet,Chewable
81 mg PO DAILY Qty: 30 0RF
gabapentin 100 mg Capsule
100 mg PO TID 10 Days Qty: 30 0RF
Continued
donepezil 5 mg Tablet
5 mg PO HS
clopidogrel 75 mg Tablet
75 mg PO DAILY
losartan 100 mg Tablet
100 mg PO DAILY
escitalopram oxalate 10 mg Tablet
10 mg PO DAILY
Repatha Syringe 140 mg/mL Syringe
140 mg SC Q2W
metformin 750 mg Tablet
750 mg PO BID
Discontinued
pitavastatin calcium [Livalo] 4 mg Tablet
4 mg PO DAILY
Discharge Orders:
Discharge Patient (As Directed); Ordered 11/08/24
Ordered By: Zachary Vicente
Discharge Date and Time
Discharge Date/Time: 11/08/24 14:05
Print Language: CANADIAN
== END 2024-11-08 14:05 | disposition home or self-care (01) ==
LOC: 4 EAST ACU 05:35
PROVIDERS: Emergency Medicine; ADMITTING PHYSICIAN Hospitalist; ATTENDING PHYSICIAN Hospitalist; CONSULT PHYSICIAN Psychiatry & Neurology Neurology; EMERGENCY PHYSICIAN Emergency Medicine; FAMILY PHYSICIAN Internal Medicine
DX: E11.42 Type 2 diabetes mellitus with diabetic polyneuropathy (principal); I10 Essential (primary) hypertension; I25.10 Atherosclerotic heart disease of native coronary artery without angina pectoris; F01.50 Vascular dementia, unspecified severity, without behavioral disturbance, psychotic disturbance, mood disturbance, and anxiety; Z79.899 Other long term (current) drug therapy; Z79.4 Long term (current) use of insulin; Z95.0 Presence of cardiac pacemaker
CPT/HCPCS: 70450; 70496; 70498; 71046; 80048; 80053; 80061; 82962; 83036; 84484; 85025; 85027; 85576; 93005; 97116; 97163; 99285; G0378; Q9967